=== PATIENT | female | born 1960 | race Caucasian/White ===

== ENCOUNTER 2022-03-09 07:50 | Emergency (ER) | payer OTHER, SELFPAY ==
[2022-03-09 07:50] VITALS: BP 147/87; PULSE 68; RESP 14; TEMP 36.6; O2SAT 97; BMI 22.1
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
[2022-03-09] MEDS: Fluorescein 1 MG STRIP 1 STRIP EACH EYE (09:45)
[2022-03-09] MEDS: Metoclopramide 10 MG Tablet PO (09:45)
== END 2022-03-09 09:47 | disposition home or self-care (01) ==
PROVIDERS: Emergency Provider Emergency Medicine; PCP Internal Medicine; Visit Provider Emergency Medicine
DX: B02.9 Zoster without complications (principal); L23.7 Allergic contact dermatitis due to plants, except food
CPT/HCPCS: 99283